=== PATIENT | female | born 2000 | race Hispanic/Latino ===

== ENCOUNTER 2021-07-13 21:25 | Emergency (ER) | payer SELFPAY ==
--- NOTE | 2021-07-14 01:06 | ER ---
Nurse's Notes [facility] Name: Jigna Presley Age: 20 yrs Sex: Female : 2000 Arrival Date: 07/13/2021 Time: :31 Bed 24 Private MD: Diagnosis: Constipation, unspecified Presentation: 07/13 22:07 Chief complaint: Patient states: About 3 days ago I had anal sex and I believe the ll3 condom is stuck, I feel constipated, my stool has been loose, I feel like I need to use the restroom and cant". Coronavirus screen: Vaccine status: Patient reports receiving the 2nd dose of the covid vaccine. At this time, the client does not indicate any symptoms associated with coronavirus-19. Ebola Screen: No symptoms or risks identified at this time. Initial Sepsis Screen: Does the patient meet any 2 criteria? No. Patient's initial sepsis screen is negative. Does the patient have a suspected source of infection? No. Patient's initial sepsis screen is negative. Risk Assessment: Do you want to hurt yourself or someone else? Patient reports no desire to harm self or others. Onset of symptoms was July 10, 2021. 22:07 Method Of Arrival: Ambulatory ll3 22:07 Acuity: SHEFALI 3 ll3 Triage Assessment: 22:12 General: Appears uncomfortable, Behavior is calm, cooperative. Pain: Denies pain. ll3 Neuro: Level of Consciousness is awake, alert, obeys commands, Oriented to person, place, time, situation. GI: Abdomen is flat, non-distended, Stools are reported to be loose, Reports lower abdominal pain, upper abdominal pain, bloating, constipation, diarrhea, gaseousness, nausea, Parent/caregiver reports the patient having Possible condom stuck in rectum, states had anal sex 3 days ago and it is missing. Derm: Skin is pink, warm \\T\\ dry. 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 - Social history:: Smoking status: Patient denies any tobacco usage or history of. Screenin:29 Abuse screen: Denies threats or abuse. Nutritional screening: No deficits noted. jb4 Tuberculosis screening: No symptoms or risk factors identified. Fall Risk None identified. Assessment: 23:28 Reassessment: Patient appears in no apparent distress at this time. Patient and/or jb4 family updated on plan of care and expected duration. Pain level reassessed. Patient is alert, oriented x 3, equal unlabored respirations, skin warm/dry/pink. 07/14 01:21 Reassessment: Patient appears in no apparent distress at this time. Patient and/or jb4 family updated on plan of care and expected duration. Pain level reassessed. Patient is alert, oriented x 3, equal unlabored respirations, skin warm/dry/pink. Vital Signs: 07/13 22:07 BP 129 / 80; Pulse 85; Resp 16; Temp 99.1(TE); Pulse Ox 100% ; Weight 72.57 kg (R); ll3 Height 5 ft. 3 in. (160.02 cm) (R); Pain 0/10; 07/14 00:45 BP 132 / 82; Pulse 70; Resp 16; Pulse Ox 100% on R/A; jb4 07/13 22:07 Body Mass Index 28.34 (72.57 kg, 160.02 cm) ll3 ED Course: 07/13 21:31 Patient arrived in ED. ja2 22:12 Triage completed. ll3 22:12 Arm band placed on right wrist. ll3 22:31 Walter De La Garza NP is PHCP. pm1 22:31 Kurt Sher MD is Attending Physician. pm1 22:38 Arturo Linares, HENNY is Primary Nurse. jb4 23:04 Abdomen 1 View (KUB) XRAY In Process Unspecified. EDMS 23:29 Patient has correct armband on for positive identification. Bed in low position. Call jb4 light in reach. Side rails up X 1. 23:29 No provider procedures requiring assistance completed. Patient did not have IV access jb4 during this emergency room visit. 07/14 00:32 Abdomen 1 View (KUB) XRAY In Process Unspecified. EDMS Administered Medications: No medications were administered Medication: 00:45 VIS not applicable for this client. jb4 Outcome: 01:05 Discharge ordered by . pm1 01:22 Discharged to home ambulatory. jb4 01:22 Condition: stable 01:22 Discharge instructions given to patient, Instructed on discharge instructions, follow up and referral plans. medication usage, Demonstrated understanding of instructions, follow-up care, medications, Prescriptions given X 2. 01:22 Patient left the ED. jb4 Signatures: Dispatcher [employer] EDMS Walter De La Garza NP TEST BORE HELPER pm1 Arturo Linares RN RN jb4 Neha Lynne Lynsea, RN RN ll3
--- NOTE | 2021-07-14 01:06 | EDPHYS ---
Physician Documentation [facility] Name: Jigna Presley Age: 20 yrs Sex: Female : 2000 Arrival Date: 07/13/2021 Time: 21:31 Bed 24 Private MD: ED Physician Kurt Sher HPI: 07/13 22:36 This 20 yrs old Female presents to ER via Ambulatory with complaints of Rectal pm1 Foreign Body. 22:36 The patient presents to the emergency department with a foreign body sensation in the pm1 rectum, condom. 22:36 Onset: The symptoms/episode began/occurred 3 day(s) ago. Context: the patient has had pm1 anal intercourse. Modifying factors: The symptoms are alleviated by nothing, The symptoms are aggravated by nothing. Associate signs and symptoms: Pertinent positives: constipation, Pertinent negatives: dysuria, fever. The patient has not experienced similar symptoms in the past. The patient has not recently seen a physician. 20-year-old female presented to ER with complaints of constipation post foreign body sensation in rectum. Patient believes that condom was stuck in her anus after anal intercourse. 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 - Social history:: Smoking status: Patient denies any tobacco usage or history of. ROS: 22:36 Constitutional: Negative for fever, chills, and weight loss, Cardiovascular: Negative pm1 for chest pain, palpitations, and edema, Respiratory: Negative for shortness of breath, cough, wheezing, and pleuritic chest pain. 22:36 Back: Negative for injury and pain, MS/Extremity: Negative for injury and deformity, Skin: Negative for injury, rash, and discoloration, Neuro: Negative for headache, weakness, numbness, tingling, and seizure. 22:36 Abdomen/GI: Positive for constipation, Negative for abdominal pain, nausea, vomiting, and diarrhea. 22:36 All other systems are negative. Exam: 22:36 Constitutional: This is a well developed, well nourished patient who is awake, alert, pm1 and in no acute distress. Head/Face: Normocephalic, atraumatic. 22:36 Back: No spinal tenderness. No costovertebral tenderness. Full range of motion. Skin: Warm, dry with normal turgor. Normal color with no rashes, no lesions, and no evidence of cellulitis. MS/ Extremity: Pulses equal, no cyanosis. Neurovascular intact. Full, normal range of motion. 22:36 Cardiovascular: Exam negative for acute changes, Rate: normal, Rhythm: regular, Pulses: no pulse deficits are appreciated, Heart sounds: normal. 22:36 Respiratory: Exam negative for acute changes, respiratory distress, shortness of breath, Breath sounds: are clear throughout. 22:36 Abdomen/GI: Inspection: abdomen appears normal, Palpation: abdomen is soft and non-tender, in all quadrants. 22:36 Neuro: Exam negative for acute changes, Orientation: is normal, Mentation: is normal, Motor: is normal, moves all fours. Vital Signs: 22:07 BP 129 / 80; Pulse 85; Resp 16; Temp 99.1(TE); Pulse Ox 100% ; Weight 72.57 kg (R); ll3 Height 5 ft. 3 in. (160.02 cm) (R); Pain 0/10; 07/14 00:45 BP 132 / 82; Pulse 70; Resp 16; Pulse Ox 100% on R/A; jb4 07/13 22:07 Body Mass Index 28.34 (72.57 kg, 160.02 cm) ll3 MDM: 07/13 22:35 Patient medically screened. pm1 07/14 00:20 Data reviewed: vital signs. Data interpreted: Pulse oximetry: on room air is 100 %. pm1 Interpretation: normal. 01:05 Counseling: I had a detailed discussion with the patient and/or guardian regarding: the pm1 historical points, exam findings, and any diagnostic results supporting the discharge/admit diagnosis, radiology results, the need for outpatient follow up, to return to the emergency department if symptoms worsen or persist or if there are any questions or concerns that arise at home. 07/13 22:35 Order name: Abdomen 1 View (KUB) XRAY pm1 07/14 00:05 Order name: Abdomen 1 View (KUB) XRAY mw2 Administered Medications: No medications were administered Disposition: 07:18 Co-signature as Attending Physician, Kurt Sher MD. [email or web address] Disposition Summary: 07/14/21 01:05 Discharge Ordered Location: Home pm1 Problem: new pm1 Symptoms: have improved pm1 Condition: Stable pm1 Diagnosis - Constipation, unspecified pm1 Followup: pm1 - With: Emergency Department - When: As needed - Reason: Worsening of condition Followup: pm1 - With: Private Physician - When: 2 - 3 days - Reason: Recheck today's complaints, Continuance of care, Re-evaluation by your physician Discharge Instructions: - Discharge Summary Sheet pm1 - Constipation, Adult pm1 Forms: - Medication Reconciliation Form pm1 - Thank You Letter pm1 - Antibiotic Education pm1 - Prescription Opioid Use pm1 Prescriptions: - Lactulose 10 gram/15 mL Oral Solution - take 30 milliliters by ORAL route once daily; 300 milliliter; Refills: 0, pm1 Product Selection Permitted - Miralax 17 gram Oral powder in packet - take 1 packet by ORAL route once daily As needed; 7 packet; Refills: 0, Product pm1 Selection Permitted Signatures: Dispatcher [employer] EDMS Walter De La Garza, CORK MIXER CORK MIXER pm1 Kurt Sher MD MD mh7 Tip Broderick RN RN ll3 Corrections: (The following items were deleted from the chart) 07/13 22:43 22:35 Urine Test ordered. pm1 jb4 22:59 22:35 Urine Dipstick-Ancillary ordered. pm1 jb4
[2021-07-14 01:37] VITALS: TEMP 99.1; O2SAT 100
[2021-07-14 01:38] VITALS: BP 132/82
--- NOTE | 2021-07-14 08:00 | RAD REPORT ---
EXAM DESCRIPTION: RAD - Abdomen 1 View (KUB) - 07/13/2021 11:02 pm CLINICAL HISTORY: CONSTIPATION Pain COMPARISON: Abdomen 1 View (KUB) dated 07/14/2021 FINDINGS: The bowel gas pattern is non-obstructive. No evidence of free air or pneumatosis. No suspi cious calcifications. No significant bony findings. IMPRESSION: Negative examination.
--- NOTE | 2021-07-14 13:49 | RAD REPORT ---
EXAM DESCRIPTION: Abdomen 1 View (KUB) CLINICAL HISTORY: 20 years Female, foreign object COMPARISON: KUB July 14, 2021 FINDINGS: Bowel gas pattern appears nonobstructive. Small amount of fecal material in the colon demo nstrated. Osseous structures are unremarkable. IMPRESSION: Nonobstructive bowel gas pattern. Electronically signed by: Rogelio Leblanc MD 07/14/2021 12:44 AM CDT Due to temporary technical issues with the PACS/Fluency reporting system, reports are being signed by the in house radiologists without review as a courtesy to insure prompt reporting. The interpreting radiologist is fully responsible for the content of the report.
== END 2021-07-14 01:22 | disposition home or self-care (01) ==
LOC: ER 21:25
DX: K59.00 Constipation, unspecified (principal)
CPT/HCPCS: 74018; 99283